=== PATIENT | male | born 1935 | race Caucasian/White ===

== ENCOUNTER 2020-05-09 09:17 | Inpatient (IN) ==
[2020-05-09 10:06] LABS: Basophils % 0.3 % (0.0-0.8); Eosinophils # 0.1 10*3/uL (0.0-0.87); Eosinophils % 1.2 % (0.00-10.9); Hematocrit 46.4 VOL% (42.0-52.0); Hemoglobin 15.2 GM/DL (14.0-18.0); Immature Granulocytes % 0.5 %; Immature Granulocytes Absolute 0.03 #; Lymphocytes % 16.3 % (21.2-54.2); Mean Corpuscular HGB Conc 32.8 GM/DL (32-36); Mean Corpuscular Volume 93.7 FL (87-102); Mean Platelet Volume 11.6 FL (9.6-12.0); Monocytes % 8.7 % (1.7-12.7); Platelet Count 138 T/CUMM (130-400); Red Blood Count 4.95 MC/CUMM (3.8-5.5); Red Cell Distribution Width 12.4 % (9.3-17.3); White Blood Count 5.8 T/CUMM (4-12)
[2020-05-09 10:17] LABS: PT Patient Result 10.6 SECS (9.8-11.9); Partial Thromboplastin Time 27.2 SECS (23.9-33.8)
[2020-05-09 10:33] LABS: CKMB % 6.9 %; Thyroid Stimulating Hormone 2.56 uIU/ml (0.358-3.74); Uric Acid 6.7 MG/DL (3.5-7.2)
[2020-05-09 10:35] LABS: Troponin I 2.44 NG/ML (0.00-0.045)
[2020-05-09] MEDS ORDERED: ASPIRIN CHEW 81 MG TABLET PO STA (10:41)
[2020-05-09] MEDS ORDERED: FAMOTIDINE 20 MG/2 ML VIAL IV STA (10:42)
[2020-05-09] MEDS ORDERED: ENOXAPARIN 100 MG/ML SYRINGE SUBCUT STA (11:04)
[2020-05-09] MEDS ORDERED: CLOPIDOGREL 300 MG TABLET PO STA (11:05)
[2020-05-09] MEDS ORDERED: ACETAMINOPHEN 325 MG TABLET PO PRN (11:17)
[2020-05-09] MEDS ORDERED: DEXTROSE 50% 25 GM/50 ML VIAL IV PRN (11:17)
[2020-05-09] MEDS ORDERED: GLUCAGON 1 MG VIAL IM PRN (11:17)
[2020-05-09] MEDS ORDERED: ONDANSETRON 4 MG/2 ML VIAL IV PRN (11:17)
[2020-05-09 11:21] LABS: Albumin 3.6 G/DL (3.4-5.0); Bilirubin,Total 0.4 MG/DL (0.2-1.0); Calcium 9.6 MG/DL (8.5-10.1); Osmolality,Calculated 278.5 MOS/KG (273-304); Total Protein 7.5 G/DL (6.4-8.3)
[2020-05-09] MEDS ORDERED: hydrALAZINE 20 MG/1 ML VIAL IV PRN (12:43)
[2020-05-09] MEDS ORDERED: MAGNESIUM SULF RIDER 2 GM in PREMIX 1 EACH IV PRN (13:24)
[2020-05-09] MEDS ORDERED: POTASSIUM CHLORIDE RIDER 10 MEQ in PREMIX 1 EACH IV PRN (13:24)
[2020-05-09] MEDS ORDERED: NITROGLYCERIN 2% OINT 1 INCH/GM PACK TOP ONE (14:16)
[2020-05-09] MEDS ORDERED: NITROGLYCERIN SL 0.4 MG TABLET SL PRN (14:16)
[2020-05-09 15:13] LABS: Apearance,Urine CLEAR (Clear); Bilirubin,Urine Negative (Negative); Blood, Urine Moderate mg/dL (Negative); Glucose,Urine (UA) Negative (Negative); Ketones,Urine Negative (Negative); Mucus,Urine Occasional /LPF (Occasional); Nitrite,Urine Negative (Negative); Protein,Urine Negative; RBC,Urine 122 /HPF (0-4); Urine Color Yellow (Yellow); Urine Specific Gravity 1.017 (1.001-1.035); Urine Urobilinogen < 2.0 EU/DL (0.2-1.0); WBC,Urine 3 /HPF (0-6)
[2020-05-09] MEDS: ASPIRIN EC 325 MG TABLET PO SCH (21:33)
[2020-05-09] MEDS: MELATONIN 3 MG TABLET PO PRN (21:33)
[2020-05-09] MEDS: TAMSULOSIN 0.4 MG CAPSULE PO SCH (21:33)
[2020-05-09] MEDS: ROSUVASTATIN 20 MG TABLET PO SCH (21:33)
[2020-05-09] MEDS: POLYCARBOPHIL 625 MG TABLET PO SCH (21:34)
[2020-05-09] MEDS: ENOXAPARIN 60 MG/0.6 ML SYRINGE SUBCUT SCH (23:34)
[2020-05-10 05:48] LABS: Basophils % 0.4 % (0.0-0.8); Eosinophils # 0.1 10*3/uL (0.0-0.87); Eosinophils % 0.8 % (0.00-10.9); Hematocrit 41.8 VOL% (42.0-52.0); Hemoglobin 13.9 GM/DL (14.0-18.0); Immature Granulocytes % 0.4 %; Immature Granulocytes Absolute 0.03 #; Lymphocytes # 1.3 10*3/uL (1.4-4.0); Lymphocytes % 16.9 % (21.2-54.2); Mean Corpuscular HGB Conc 33.3 GM/DL (32-36); Mean Corpuscular Volume 92.7 FL (87-102); Mean Platelet Volume 11.9 FL (9.6-12.0); Monocytes % 10.4 % (1.7-12.7); Neutrophils % 71.1 % (38.7-73.9); Platelet Count 128 T/CUMM (130-400); Red Blood Count 4.51 MC/CUMM (3.8-5.5); Red Cell Distribution Width 12.5 % (9.3-17.3); White Blood Count 7.9 T/CUMM (4-12)
[2020-05-10 06:13] LABS: CKMB % 6.7 %
[2020-05-10 06:17] LABS: Albumin 3.3 G/DL (3.4-5.0); Bilirubin,Total 0.8 MG/DL (0.2-1.0); Osmolality,Calculated 278.5 MOS/KG (273-304); Risk Ratio 4.61; Total Protein 6.3 G/DL (6.4-8.3)
[2020-05-10 06:32] LABS: Platelet Estimate Normal
[2020-05-10 06:46] LABS: Troponin I 8.94 NG/ML (0.00-0.045)
[2020-05-10] MEDS: LOSARTAN 25 MG TABLET PO SCH (09:06)
[2020-05-10] MEDS: POTASSIUM CHLORIDE 10 MEQ TABLET PO SCH (09:07)
[2020-05-10] MEDS: PANTOPRAZOLE 40 MG TABLET PO SCH (09:07)
[2020-05-10] MEDS: MONTELUKAST 10 MG TABLET PO SCH (09:08)
[2020-05-10] MEDS: POLYCARBOPHIL 625 MG TABLET PO SCH ×2 (09:08→22:13)
[2020-05-10] MEDS: SODIUM CHLORIDE 0.45% 1,000 ML IV SCH ×2 (11:32→20:13)
[2020-05-10] MEDS: ENOXAPARIN 60 MG/0.6 ML SYRINGE SUBCUT SCH ×2 (11:33→22:13)
[2020-05-10] MEDS ORDERED: DIAZEPAM 5 MG TABLET PO ONE (12:00)
[2020-05-10] MEDS ORDERED: diphenhydrAMINE CAP 25 MG CAPSULE PO ONE (12:00)
[2020-05-10] MEDS ORDERED: LIDOCAINE 1% 20 ML VIAL ONE (13:09)
[2020-05-10] MEDS ORDERED: MIDAZOLAM 2 MG/2 ML VIAL ONE (13:12)
[2020-05-10] MEDS ORDERED: HYDROmorphone 2 MG/1 ML VIAL ONE (13:12)
[2020-05-10] MEDS ORDERED: HEPARIN 5,000 UNIT/1 ML VIAL ONE (13:39)
[2020-05-10] MEDS ORDERED: TICAGRELOR 90 MG TABLET ONE (14:13)
[2020-05-10 15:16] LABS: CKMB % 5.1 %
[2020-05-10 15:19] LABS: Troponin I 15.4 NG/ML (0.00-0.045)
[2020-05-10] MEDS: ROSUVASTATIN 20 MG TABLET PO SCH (22:13)
[2020-05-10] MEDS: TAMSULOSIN 0.4 MG CAPSULE PO SCH (22:13)
[2020-05-10] MEDS: MELATONIN 3 MG TABLET PO PRN (22:13)
[2020-05-10] MEDS: ASPIRIN EC 325 MG TABLET PO SCH (22:13)
[2020-05-11] MEDS: SODIUM CHLORIDE 0.45% 1,000 ML IV SCH ×2 (04:18→09:02)
[2020-05-11 05:21] LABS: Basophils % 0.1 % (0.0-0.8); Eosinophils % 0.4 % (0.00-10.9); Immature Granulocytes % 0.5 %; Immature Granulocytes Absolute 0.04 #; Lymphocytes # 1.2 10*3/uL (1.4-4.0); Lymphocytes % 16.6 % (21.2-54.2); Mean Corpuscular HGB Conc 32.5 GM/DL (32-36); Mean Corpuscular Volume 93.5 FL (87-102); Monocytes % 14.1 % (1.7-12.7); Neutrophils % 68.3 % (38.7-73.9); Platelet Count 114 T/CUMM (130-400); Red Blood Count 4.28 MC/CUMM (3.8-5.5); Red Cell Distribution Width 12.4 % (9.3-17.3); White Blood Count 7.5 T/CUMM (4-12)
[2020-05-11 06:11] LABS: CKMB % 2.2 %; Calcium 8.8 MG/DL (8.5-10.1); Osmolality,Calculated 273.8 MOS/KG (273-304)
[2020-05-11 06:57] LABS: Troponin I 23.2 NG/ML (0.00-0.045)
[2020-05-11 07:03] LABS: Albumin 2.9 G/DL (3.4-5.0); Bilirubin,Total 1.1 MG/DL (0.2-1.0); Calcium 8.9 MG/DL (8.5-10.1); Osmolality,Calculated 275.7 MOS/KG (273-304); Total Protein 6.1 G/DL (6.4-8.3)
[2020-05-11] MEDS: LOSARTAN 25 MG TABLET PO SCH (08:54)
[2020-05-11] MEDS: MONTELUKAST 10 MG TABLET PO SCH (08:54)
[2020-05-11] MEDS: POLYCARBOPHIL 625 MG TABLET PO SCH ×2 (08:54→21:55)
[2020-05-11] MEDS: PANTOPRAZOLE 40 MG TABLET PO SCH (08:54)
[2020-05-11] MEDS: POTASSIUM CHLORIDE 10 MEQ TABLET PO SCH (08:54)
[2020-05-11] MEDS: ASPIRIN EC 81 MG TABLET PO SCH (12:41)
[2020-05-11] MEDS: TICAGRELOR 90 MG TABLET PO SCH ×2 (12:48→21:55)
[2020-05-11] MEDS: ENOXAPARIN 60 MG/0.6 ML SYRINGE SUBCUT SCH ×2 (12:49→22:00)
[2020-05-11] MEDS: DOCUSATE SODIUM 100 MG CAPSULE PO SCH (12:49)
[2020-05-11] MEDS: ROSUVASTATIN 20 MG TABLET PO SCH (21:55)
[2020-05-11] MEDS: MELATONIN 3 MG TABLET PO PRN (21:56)
[2020-05-11] MEDS: TAMSULOSIN 0.4 MG CAPSULE PO SCH (21:56)
[2020-05-12 01:31] LABS: Albumin 2.7 G/DL (3.4-5.0); Bilirubin,Total 0.8 MG/DL (0.2-1.0); Calcium 8.7 MG/DL (8.5-10.1); Osmolality,Calculated 285.1 MOS/KG (273-304)
[2020-05-12 01:47] LABS: Basophils % 0.3 % (0.0-0.8); Eosinophils # 0.1 10*3/uL (0.0-0.87); Eosinophils % 1.9 % (0.00-10.9); Hemoglobin 13.2 GM/DL (14.0-18.0); Immature Granulocytes % 0.3 %; Immature Granulocytes Absolute 0.02 #; Lymphocytes # 1.4 10*3/uL (1.4-4.0); Lymphocytes % 22.4 % (21.2-54.2); Mean Corpuscular Volume 92.6 FL (87-102); Mean Platelet Volume 12.2 FL (9.6-12.0); Monocytes % 16.5 % (1.7-12.7); Neutrophils % 58.6 % (38.7-73.9); Platelet Count 120 T/CUMM (130-400); Red Blood Count 4.32 MC/CUMM (3.8-5.5); Red Cell Distribution Width 12.5 % (9.3-17.3); White Blood Count 6.2 T/CUMM (4-12)
[2020-05-12 07:19] LABS: Anisocytosis 1+; Band Neutrophils 1 % (0-10); Lymphocytes 22 % (20-55); Platelet Estimate Decreased; Segmented Neutrophils 62 % (50-85); Total Cells Counted 100
[2020-05-12 07:20] LABS: Microcytosis 1+
[2020-05-12] MEDS: LOSARTAN 25 MG TABLET PO SCH (09:00)
[2020-05-12] MEDS: ASPIRIN EC 81 MG TABLET PO SCH (09:00)
[2020-05-12] MEDS: MONTELUKAST 10 MG TABLET PO SCH (09:00)
[2020-05-12] MEDS: POLYCARBOPHIL 625 MG TABLET PO SCH (09:00)
[2020-05-12] MEDS: POTASSIUM CHLORIDE 10 MEQ TABLET PO SCH (09:00)
[2020-05-12] MEDS: PANTOPRAZOLE 40 MG TABLET PO SCH (09:01)
[2020-05-12] MEDS: DOCUSATE SODIUM 100 MG CAPSULE PO SCH (09:01)
[2020-05-12] MEDS: TICAGRELOR 90 MG TABLET PO SCH (09:01)
[2020-05-12] MEDS: ENOXAPARIN 60 MG/0.6 ML SYRINGE SUBCUT SCH (10:13)
[2020-05-12 12:09] VITALS: BP 143/78
== END 2020-05-12 16:37 | disposition home health service (06) | DRG 247 ==
LOC: N.ED 09:17 → SUATTDRO 11:17 → N.EDINP 11:17 → N.TELES 15:25
PROVIDERS: ADMIT Internal Medicine; ATTEND Internal Medicine